=== PATIENT | male | born 1955 | race Caucasian/White ===

== ENCOUNTER 2016-08-11 12:23 | Emergency (ER) | payer OTHER | END 2016-08-11 15:15 | disposition home or self-care (01) | LOC: ER 12:23 | DX: I16.0 Hypertensive urgency (principal); R51 Headache; G31.9 Degenerative disease of nervous system, unspecified; I10 Essential (primary) hypertension; N40.0 Benign prostatic hyperplasia without lower urinary tract symptoms; Z79.899 Other long term (current) drug therapy; Z88.0 Allergy status to penicillin ==